=== PATIENT | male | born 1990 | race Caucasian/White ===

== ENCOUNTER 2017-01-14 12:48 | Emergency (ER) | payer MEDICAID ==
[~2017-01-14 12:48] MED LIST: ACULAR10 ML OS; BENZONATATE PO; ERYTHROMYCIN O3.5 GM OS; IBUPROFEN800 MG PO; KEFLEX PO; NO MEDICATIONS; PHENERGAN25 M1 PO; TRAMADOL HCL50 M1 PO; ZITHROMAX PO
== END 2017-01-14 14:04 | disposition home or self-care (01) ==
LOC: SED 12:48
DX: S71.112A Laceration without foreign body, left thigh, initial encounter (principal); F17.200 Nicotine dependence, unspecified, uncomplicated; W27.8XXA Contact with other nonpowered hand tool, initial encounter; Y92.009 Unspecified place in unspecified non-institutional (private) residence as the place of occurrence of the external cause
CPT/HCPCS: 12001; 90471; 90715; 99283

== ENCOUNTER 2017-05-06 21:43 | Emergency (ER) | payer MEDICAID ==
[~2017-05-06] VITALS: Ht 165.1 cm; Wt 70.3 kg
--- NOTE | ~2017-05-06 | CR63 ---
[facility]. [facility] A Service of [facility] & [facility] RADIOLOGY TEXT RESULTS PATIENT: HARRIETT QUESADA III LOCATION: SED : 88 UNIT #: [id number] AGE: [address]: HORACE PETERSON SEX: M ORDER DR: [id number] [place] [id number] MR#: [id number] Acc #: [id number] NAME: HARRIETT QUESADA III : 1990 SEX: M STUDY DATE/TIME: 05/06/2017 22:57 UNIT: SED ROOM: STUDY DESCRIPTION: CR Chest 2 View Attending Physician: Horace Peterson R.N. Ordering Physician: Horace Peterson R.N. Primary Care Physician: Grey Kuo M.D. MEDICAL IMAGING REPORT This report is preliminary unless electronic signature is present. EXAM Two-view chest. INDICATIONS Cough and chest congestion since this morning. PROCEDURE Frontal and lateral views of the chest. COMPARISON None. FINDINGS Heart size is normal. No dense consolidation, visible pleural fluid or pneumothorax. IMPRESSION No active process. Dictated by... Eleuterio Keyes M.D. THIS IS AN ELECTRONICALLY VERIFIED REPORT Eleuterio Keyes M.D. at 05/07/2017 9:57 PM EED/efe TD: 05/07/2017 09:49 JOB #: [id number] MEDICAL IMAGING REPORT Page 1 of 1
== END 2017-05-07 00:04 | disposition home or self-care (01) ==
LOC: SED 21:43
DX: J30.2 Other seasonal allergic rhinitis (principal); J06.9 Acute upper respiratory infection, unspecified; F17.210 Nicotine dependence, cigarettes, uncomplicated
CPT/HCPCS: 71020; 87651; 94640; 99283